=== PATIENT | male | born 1955 | race African-American/Black ===

== ENCOUNTER → 2020-06-26 | Outpatient (CLI) | payer OTHER ==
--- NOTE | 2020-06-26 09:03 | RAD ---
Right Lower Extremity Venous Doppler Ultrasound History: Right lower extremity edema Comparison: None Procedure: Color flow, duplex, spectral analysis and 2D images are obtained with and without compress ion in the area of the common femoral vein, superficial femoral vein - femoral vein junction, main fe moral vein (superficial femoral vein) and popliteal vein. Veins of the proximal calf are also imaged. Findings: There is normal duplex flow, color flow and compressibility of all visualized vein segments. No evide nce of deep venous thrombus is present. There are a few mildly enlarged lymph nodes in the right groin. Impression: 1. No evidence of DVT. 2. Mild lymphadenopathy in the right groin likely reactive. Electronically signed by: Alexander Gamble III, MD (06/26/2020 9:00 AM) [id number]
== END ==
LOC: US 08:22 → EEVIPCON 08:22
PROVIDERS: ATTEND Nurse Practitioner Family
DX: R22.41 Localized swelling, mass and lump, right lower limb (principal)
CPT/HCPCS: 93971